=== PATIENT | male | born 1960 | race African-American/Black ===

== ENCOUNTER 2021-01-03 12:47 | Outpatient (CLI) | payer SELFPAY ==
--- NOTE | 2021-01-03 | ECG_ITS ---
Measurements Intervals [place] Rate: 59 P: 51 CT: 191 QRS: 30 QRSD: 94 T: -1 QT: 386 QTc: 384 Interpretive Statements SINUS BRADYCARDIA BORDERLINE ST-T WAVE ABNORMALITY- INFERIOR LEADS BORDERLINE ECG Electronically Signed On 01-03-2021 13:55:31 CDT by Tony Echols D.O.
[2021-01-03 13:26] LABS: Hematocrit 41.9 % (42.0-52.0); Hemoglobin 13.7 g/dL (14.0-18.0); Mean Corpuscular HGB Conc 32.7 g/dl (32-36); Mean Corpuscular Hemoglobin 31.5 pg (26-34); Mean Corpuscular Volume 96.3 fl (80-100); Mean Platelet Volume 9.2 fl (7.4-10.4); Platelet Count Result 179 k/mm3 (150-375); Red Blood Count 4.35 M/mm3 (4.6-6.20); Red Cell Distribution Width 12.4 % (11.5-14.5); White Blood Count 5.1 K/mm3 (4.5-10.0)
[2021-01-03 13:54] LABS: Alanine Aminotransferase 29 U/L (4-50); Albumin Level 4.3 g/dL (3.5-5.1); Alkaline Phosphatase 46 U/L (38-126); Anion Gap 8 mmol/L (8-16); Aspartate Amino Transferase 30 U/L (17-59); Bilirubin,Total 0.7 mg/dL (0.2-1.3); Blood Urea Nitrogen 19 mg/dL (9-20); Calcium 9.7 mg/dL (8.4-10.2); Carbon Dioxide 27 mmol/L (22-30); Chloride 101 mmol/L (98-107); Estimated Glomerular Filt Rate > 60; Glucose 89 mg/dL (65-110); Potassium 4.4 mmol/L (3.4-5.0); Sodium 136 mmol/L (137-145)
== END 2021-01-03 12:48 | disposition home or self-care (01) ==
PROVIDERS: Visit Provider Orthopaedic Surgery
DX: Z01.818 Encounter for other preprocedural examination (principal); R00.1 Bradycardia, unspecified
CPT/HCPCS: 36415; 80053; 85027; 93005

== ENCOUNTER 2023-08-03 09:22 | Emergency (ER) | payer OTHER, SELFPAY ==
[2023-08-03] VITALS (9 sets, daily range): BP systolic 120–139; BP diastolic 68–95; PULSE 70–92; RESP 13–25; TEMP 36.8; O2SAT 97–100
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
--- NOTE | 2023-08-03 09:24 | ECG_ITS ---
Measurements Intervals [place] Rate: 83 P: 40 W[place]: 171 QRS: 20 QRSD: 97 T: 8 QT: 339 QTc: 400 Interpretive Statements SINUS RHYTHM DELAYED PRECORDIAL R/S TRANSITION BORDERLINE ST-T WAVE ABNORMALITY- INFERIOR LEADS BASELINE ARTIFACT- I, III, AVR, AVL, AVF BORDERLINE ECG COMPARED TO ECG 01/03/2021 13:15:32 SINUS RHYTHM NOW PRESENT Electronically Signed On 08-03-2023 16:52:48 BEEF CATTLE SPECIALIST by Tony Echols D.O.
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
[2023-08-03 10:23] LABS: Basophils Percent Auto 0.1 % (0.2-1.2); Eosinophils Percent Auto 0.3 % (0-4.4); Hematocrit 41.3 % (42.0-52.0); Hemoglobin 13.6 g/dL (14.0-18.0); Immature Granulocyte Absolute 0.01 K/mm3 (0.00-0.031); Immature Granulocyte Percent A 0.1 % (0-0.5); Lymphocytes Absolute Auto 1.13 K/mm3 (0.9-3.2); Mean Corpuscular HGB Conc 32.9 g/dl (32-36); Mean Corpuscular Hemoglobin 32.1 pg (26-34); Mean Corpuscular Volume 97.4 fl (80-100); Mean Platelet Volume 8.8 fl (7.4-10.4); Monocytes Absolute Auto 0.7 K/mm3 (0.1-0.6); Monocytes Percent Auto 9.6 % (2.6-8.5); Neutrophils Absolute Auto 5.2 K/mm3 (1.3-6.7); Neutrophils Percent Auto 73.9 % (45.5-73.1); Platelet Count Result 168 k/mm3 (150-375); Red Blood Count 4.24 M/mm3 (4.6-6.20); Red Cell Distribution Width 11.9 % (11.5-14.5); White Blood Count 7.1 K/mm3 (4.5-10.0)
[2023-08-03 10:28] LABS: Estimated CRCL calculation 60 ml/min; Estimated Glomerular Filt Rate > 60
[2023-08-03 10:33] LABS: Alanine Aminotransferase 42 U/L (6-50); Albumin Level 4.4 g/dL (3.5-5.1); Alkaline Phosphatase 47 U/L (38-126); Anion Gap 5 mmol/L (8-16); Aspartate Amino Transferase 67 U/L (17-59); Bilirubin,Total 0.9 mg/dL (0.2-1.3); Blood Urea Nitrogen 21 mg/dL (9-20); Calcium 9.4 mg/dL (8.4-10.2); Carbon Dioxide 26 mmol/L (22-30); Chloride 105 mmol/L (98-107); Creatine Kinase 1350 U/L (55-170); Estimated CRCL calculation 70 ml/min; Estimated Glomerular Filt Rate > 60; Glucose 111 mg/dL (65-110); Potassium 4.4 mmol/L (3.4-5.0); Sodium 136 mmol/L (137-145)
[2023-08-03] MEDS: SODIUM CHLORIDE 0.9% IV 1,000 ML 999 ML IV CONT ×2 (10:43→10:57)
[2023-08-03 10:44] LABS: Troponin I < 0.012 ng/mL (0.000-0.034)
[2023-08-03] MEDS: HYDROcodone/acetaminophen (*CRX) 5-325 MG TABLET 1 TAB PO (10:44)
[2023-08-03 11:12] LABS: Appearance Urine Clear (Clear); Bacteria Urine None Seen /hpf; Bilirubin Urine Negative (Negative); Blood Urine 3+ (Negative); Color Urine Yellow (Yellow); Glucose Urine UA Negative (Negative); Ketones Urine Negative (Negative); Leukocyte Esterase Ur Negative LEU/UL (Negative); Nitrate Urine Negative (Negative); Non Pathogenic Casts 0-2; Protein Urine Negative (Negative); RBC Urine >100 /hpf (0-2); Specific Grav Ur 1.014 (1.001-1.035); Squamous Epithelial Cell Urine None seen /hpf (Few); Urobilinogen Urine 0.2 mg/dL (<2.0); WBC Urine 0-5 /hpf; pH Urine 6.5 (5.0-9.0)
[2023-08-03 11:14] LABS: Add Urine Microscopic? YES
== END 2023-08-03 13:37 | disposition short-term general hospital (02) ==
PROVIDERS: Emergency Provider Physician Assistant
DX: S32.422A Displaced fracture of posterior wall of left acetabulum, initial encounter for closed fracture (principal); S02.2XXA Fracture of nasal bones, initial encounter for closed fracture; R31.9 Hematuria, unspecified; M19.011 Primary osteoarthritis, right shoulder; M17.11 Unilateral primary osteoarthritis, right knee; V43.54XA Car driver injured in collision with van in traffic accident, initial encounter; Q62.5 Duplication of ureter; N13.30 Unspecified hydronephrosis; R94.31 Abnormal electrocardiogram [ECG] [EKG]; M47.812 Spondylosis without myelopathy or radiculopathy, cervical region
CPT/HCPCS: 36415; 70450; 70486; 71260; 72125; 73030; 73590; 74177; 80053; 81001; 82550; 84484; 85025; 93005; 96361; 96374; 99285; A9270; J7030; Q9967

== ENCOUNTER 2023-09-21 09:47 | Emergency (ER) | payer OTHER, SELFPAY ==
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
[2023-09-21 10:06] VITALS: BP 139/83; PULSE 78; RESP 16; TEMP 36.7; O2SAT 99
[2023-09-21] MEDS: cefTRIAXone 500 MG, LIDOCAINE HCL 1% LOCAL INJ 1 ML IM (10:34)
[2023-09-21 13:11] LABS: Trichomonas Vag PCR NOT DETECTED (NOT DETECTE)
[2023-09-21 13:34] LABS: Chlamydia trachomatis NOT DETECTED (NOT DETECTE); Neisseria gonorrhoeae PCR NOT DETECTED (NOT DETECTE)
== END 2023-09-21 10:55 | disposition home or self-care (01) ==
PROVIDERS: Emergency Provider Nurse Practitioner Family; PCP Internal Medicine
DX: R36.9 Urethral discharge, unspecified (principal)
CPT/HCPCS: 81003; 87086; 87088; 87491; 87591; 87661; 96372; 99213; G0463; J0696

== ENCOUNTER 2023-10-16 10:12 | Outpatient (CLI) | payer OTHER, SELFPAY ==
[2023-10-16 11:21] LABS: Alanine Aminotransferase 29 U/L (6-50); Albumin Level 4.6 g/dL (3.5-5.1); Alkaline Phosphatase 49 U/L (38-126); Anion Gap 8 mmol/L (4-12); Aspartate Amino Transferase 38 U/L (17-59); Basophils Percent Auto 0.5 % (0.2-1.2); Bilirubin,Total 0.8 mg/dL (0.2-1.3); Blood Urea Nitrogen 24 mg/dL (9-20); Calcium 9.1 mg/dL (8.4-10.2); Carbon Dioxide 25 mmol/L (22-30); Chloride 103 mmol/L (98-107); Cholesterol 192 mg/dL (0-200); Eosinophils Absolute Auto 0.1 K/mm3 (0-0.3); Eosinophils Percent Auto 2.3 % (0-4.4); Estimated Glomerular Filt Rate > 60; Glucose 98 mg/dL (65-110); HDL Direct 77 mg/dL; Hematocrit 44.1 % (42.0-52.0); Hemoglobin 14.4 g/dL (14.0-18.0); Immature Granulocyte Absolute 0.01 K/mm3 (0.00-0.031); Immature Granulocyte Percent A 0.2 % (0-0.5); Lymphocytes Absolute Auto 1.79 K/mm3 (0.9-3.2); Lymphocytes Percent Auto 41.2 % (18.3-44.2); Mean Corpuscular HGB Conc 32.7 g/dl (32-36); Mean Platelet Volume 8.9 fl (7.4-10.4); Monocytes Absolute Auto 0.4 K/mm3 (0.1-0.6); Neutrophils Percent Auto 46.8 % (45.5-73.1); Platelet Count Result 174 k/mm3 (150-375); Potassium 4.4 mmol/L (3.4-5.0); Red Cell Distribution Width 12.1 % (11.5-14.5); Sodium 136 mmol/L (137-145); Triglycerides 53 mg/dL (<150); White Blood Count 4.3 K/mm3 (4.5-10.0)
[2023-10-16 11:33] LABS: LDL Cholesterol Direct 90 mg/dL
[2023-10-16 11:52] LABS: Prostate Specific Antigen 2.3 ng/mL (< OR = 4.0)
== END 2023-10-16 10:13 | disposition home or self-care (01) ==
LOC: ANHLAB 10:13
PROVIDERS: PCP Internal Medicine; Visit Provider Internal Medicine
DX: Z00.00 Encounter for general adult medical examination without abnormal findings (principal); Z12.5 Encounter for screening for malignant neoplasm of prostate; Z13.29 Encounter for screening for other suspected endocrine disorder
CPT/HCPCS: 36415; 80053; 80061; 84153; 84443; 85025; G0103